=== PATIENT | female | born 1975 | race Caucasian/White ===

== ENCOUNTER 2021-11-01 19:26 | Emergency (ER) | payer OTHER, SELFPAY ==
[2021-11-01 19:30] VITALS: BP 174/99; PULSE 94; RESP 16; TEMP 37.3; O2SAT 96; BMI 26.5
--- NOTE | 2021-11-01 19:51 | ED.UPPEXIN ---
HPI - Extremity Injury (Upper) General Chief Complaint: Extremity Pain/Injury, Upper Stated Complaint: RIGHT ARM PAIN,CAN'T USE ARM Time Seen by Provider: 11/01/21 19:50 Source: patient and RN notes reviewed History of Present Illness HPI narrative: 46-year-old woman presenting partly upon urging of her with complaint of right arm area pain. Seemed to have begun having some discomfort in the right upper arm yesterday that settled a little bit and then returned again this morning with an increased sensation of tightness down into the right forearm like a rubber-band. Her fingers feel tight as well as her hand. In seemed to radiate up into more into her shoulder especially into her neck and some into her jaw a little less so into her back. Feels warm. No exacerbation with neck movement. She has not noted any swelling or redness. She notes a history of rotator cuff issue apparently physical therapy only in her 20s. She does not recall which side this was on. She endorses a lot of stress this week. Apparently daughter who struggles with drug addiction chest had 33-week-old twins. They did not know she was going to have twins. Furthermore already caring for another grandchild and a number of other children. With the stressors is also concerned that perhaps this represents cardiovascular problem. She is fairly convinced it is a shoulder issue. No fever. Treatment has been [facility] [place] balm. She also took a 1000 mg of Advil a couple hours ago. Thinks that it might be helping a little bit. No shortness of breath. No actual chest pain. No difficulty with swallowing. No cough or cold symptoms. No new trauma or excessive use of her arm that she can recall. Related Data Home Medications Medication Instructions Recorded Confirmed amlodipine 5 mg tablet 5 mg PO DAILY 11/01/21 11/01/21 cholecalciferol (vitamin D3) 11/01/21 levothyroxine 112 mcg tablet 112 mcg PO DAILY 11/01/21 11/01/21 (Synthroid) Allergies Allergy/AdvReac Type Severity Reaction Status Date / Time codeine Allergy Intermediate Hives Verified 11/01/21 19:41 Penicillins Allergy Intermediate Hives Verified 11/01/21 19:41 latex AdvReac Intermediate Blister Verified 11/01/21 19:41 shellfish derived AdvReac Hives Verified 11/01/21 19:41 Review of Systems Status of ROS: Reports: 10 or more systems reviewed and unremarkable except as noted in History and below [facility] Surgical History History of delivery Social History Smoking Status: Current every day smoker What tobacco products do you use: cigarettes Smoking packs per day: 1 Smoking cigarettes per day: 20.0 Years smoked: 4 Smoking pack-years: 4.00 Do you use any of these nicotine containing products: None Second hand tobacco smoke exposure: Yes How often do you have a drink containing alcohol: 2-3 times a week How many standard drinks containing alcohol do you have on a typical day: 1 or 2 How often do you have six or more drinks on one occasion: Never AUDIT-C Alcohol total score: 3 Non-prescribed substance use: denies use service: No Exam Narrative: Exam Narrative: Is pleasant. Does seem a little bit on edge but generally calm. I smell liniment. Skin is warm and dry without erythematous changes. A number of tattoos. Head looks to be atraumatic. Neck is supple and nontender. Does not reproduce arm symptoms to movement. are no pulsatile masses or other swellings appreciated in or around the neck. Back is nontender. Perhaps a little tense in the trapezial musculature on the right. Examination of the right shoulder is without swelling or erythema. She has good strength to resisted internal and external rotation. She does not have discrete area of pain to palpation of the shoulder or the upper arm. Is able to raise her arm up over her head. Internal rotation of the shoulder seems to-well she says it actually makes it feel little bit better. Regarding her arm-she is intact sensation and pulses distally. I do not appreciate any distal swelling though I understand her perception of fullness. Lungs are clear with equal expansion excursion. Heart initially little bit elevated rate settled down over time in the ER. Regular rhythm no murmurs rubs or gallops. Const: Vital Signs, click to edit/add: Vital Signs - 24 hr 11/01/21 19:30 11/01/21 21:01 Temperature 99.2 F Pulse Rate [Pulse Oximeter] 94 74 Respiratory Rate 16 18 Blood Pressure [Le ft Upper Arm] 174/99 H 136/85 Pulse Oximetry 96 97 Documenting provider has reviewed patient's vital signs: yes Course Course Hospital Course: I did order an x-ray of the shoulder. Three views were Reviewed by me looked to be unremarkable. Good spaces maintained. No acute abnormality. No spurring. Duration of symptoms and presentation overall seems atypical for cardiac disease. We did however do an EKG. This was reviewed by me showing a normal sinus rhythm at 72 without evidence of ischemic changes. I did offer further laboratory evaluation which was deferred. Arm sling was also ordered and placed Vital Signs Vital signs: Initial Vital Signs Temperature 99.2 F 11/01/21 19:30 Temperature Source Temporal Artery Scan 11/01/21 19:30 Pulse Rate 94 11/01/21 19:30 Respiratory Rate 16 11/01/21 19:30 Blood Pressure 174/99 H 11/01/21 19:30 Blood Pressure Mean 124 11/01/21 19:30 Blood Pressure Position Supine 11/01/21 19:30 Pulse Oximetry 96 11/01/21 19:30 Oxygen Delivery Method 11/01/21 19:30 Vital Signs Temperature 99.2 F 11/01/21 19:30 Pulse Rate 94 11/01/21 19:30 Respiratory Rate 16 11/01/21 19:30 Blood Pressure 174/99 H 11/01/21 19:30 Pulse Oximetry 96 11/01/21 19:30 Temperature 99.2 F 11/01/21 19:30 Pulse Rate 74 11/01/21 21:01 Respiratory Rate 18 11/01/21 21:01 Blood Pressure 136/85 11/01/21 21:01 Pulse Oximetry 97 11/01/21 21:01 MDM - Extremity Injury (Upper) MDM Narrative Medical decision making narrative: See above. Does appear to be some degree of inflammation present though admittedly difficult to reproduce. Does not seem to be referred as she reports no pain with movement of her neck. On re-evaluation reported that there was increased discomfort of her shoulder she attributed from moving it around during the exam. Medical Records Attestation: I reviewed the patient's medical records. Discharge Plan Discharge Clinical Impression: Arm pain Patient Disposition: Home, Self-Care Condition: Stable Additional Instructions: Wear this arm sling for comfort probably over this next week. I would ice your shoulder area with those screw top ice bags. Fill with ice and water. Ice a few times daily over the next few days. Follow-up in a week if not improving. Certainly return for uncontrolled pain, fever, chest pain/shortness of breath. Can take up to 800 mg of ibuprofen or up to 1000 mg of acetaminophen per dose. These can actually be combined as well. Alternative to the ibuprofen might be up to 500 mg of naproxen 2 times daily. Prednisone from [facility] --take 60 mg for the 1st dose. 40 mg on days 2 through 4 and then finish with 20 mg on day 5. I do hope you get some clarity and peace regarding the other things that are happening out there. Prescriptions: No Action amlodipine 5 mg tablet 5 mg PO DAILY 0RF Label Comments: TAKE 1 TABLET BY MOUTH DAILY levothyroxine [Synthroid] 112 mcg tablet 112 mcg PO DAILY 0RF Label Comments: TAKE 1 TABLET BY MOUTH EVERY DAY cholecalciferol (vitamin D3) 0RF Follow Up/Referrals: Enrique Collins MD [Primary Care Provider] - Stand Alone Forms: [employer] Info Instructions
--- NOTE | 2021-11-01 20:17 | CRLHL7_ITS ---
For Patients: As a result of the Cures Act, medical imaging exams and procedure reports are released immediately into your electronic medical record. You may view this report before your referring provider. If you have questions, please contact your health care provider. INDICATION: Severe shoulder pain, atraumatic, Severe shoulder area pain TECHNIQUE: Shoulder radiograph 3 views right COMPARISON: None FINDINGS: Bone: No acute fractures or aggressive bone lesions are identified. Joint: The glenohumeral joint is unremarkable. The acromioclavicular joint is unremarkable. Soft tissue: Unremarkable. The visualized hemithorax is unremarkable in appearance. No radiopaque foreign bodies are seen. IMPRESSION: 1. No acute osseous injuries or abnormalities are noted. Dictated by: Ash Marcos MD @ 11/01/2021 20:52:00 (Electronically Signed)
[2021-11-01 21:01] VITALS: BP 136/85; PULSE 74; RESP 18; O2SAT 97
== END 2021-11-01 21:35 | disposition home or self-care (01) ==
PROVIDERS: Emergency Provider Family Medicine; PCP Internal Medicine
DX: M79.601 Pain in right arm (principal)
CPT/HCPCS: 73030; 93005; 99283; 99284

== ENCOUNTER 2022-08-11 09:05 | Outpatient (CLI) | payer OTHER, BC, SELFPAY | END 2022-08-11 09:06 | disposition home or self-care (01) | LOC: NFLDREF 08-12 14:28 | PROVIDERS: PCP Internal Medicine; Referring Provider Internal Medicine; Visit Provider Internal Medicine | DX: E03.9 Hypothyroidism, unspecified (principal); I10 Essential (primary) hypertension; Z13.6 Encounter for screening for cardiovascular disorders | CPT/HCPCS: 80053; 80061; 84439; 84443 ==

== ENCOUNTER 2023-02-22 12:57 | Outpatient (CLI) | payer BC, SELFPAY ==
--- NOTE | 2023-02-22 13:00 | CRLHL7_ITS ---
For Patients: As a result of the Century Cures Act, medical imaging exams and procedure reports are released immediately into your electronic medical record. You may view this report before your referring provider. If you have questions, please contact your health care provider. BILATERAL SCREENING MAMMOGRAM WITH COMPUTER-AIDED DETECTION AND TOMOSYNTHESIS TECHNIQUE: CC and MLO views were obtained. These mammographic images have been obtained using full-field digital technique. These mammographic images were interpreted with the benefit of computer-aided detection. Breast Tomosynthesis was used in this interpretation. COMPARISON FILM: 09/02/21, 12/04/17, 04/14/16. FINDINGS: The breasts are extremely dense, which lowers the sensitivity of mammography IMPRESSION: There is no radiographic evidence for malignancy. ASSESSMENT: BI-RADS Category 1: Negative RECOMMENDATION: Routine screening mammogram in 1 year. A lay language report of this examination will be provided to the patient. Jorje Johnson M.D. Diagnostic Radiologist [email or web address] Transcribed: 1:06 p.aj mcintosh/Dictated by: Jorje Johnson MD @ 02/23/2023 12:41:00 PM (Electronically Signed)
== END 2023-02-22 12:58 | disposition home or self-care (01) ==
PROVIDERS: PCP Internal Medicine; Visit Provider Internal Medicine
DX: Z12.31 Encounter for screening mammogram for malignant neoplasm of breast (principal); R92.2 Inconclusive mammogram
CPT/HCPCS: 77063; 77067

== ENCOUNTER 2023-06-09 14:33 | Outpatient (CLI) | payer OTHER, SELFPAY ==
--- OUTSIDE RECORDS SUMMARY | 2023-06-12 05:35 | XMS_ITS | Clinical Summary ---
Author Name Unknown Organization [employer] [facility] Address [place], [place] [address] Care Team Providers Care Supervisor Boat Outfitting Name Role Phone Enrique Collins MD Primary Care Provider [phone] Allergies Active Allergy Reactions Criticality Noted Date Comments Latex Contact Dermatitis 11/24/2015 Penicillins Itching 08/01/2011 Shellfish Containing Products Anaphylaxis High 11/23 Medications Medication Sig Dispensed Refills Start Date End Date Status SYNTHROID 112 mcg tablet Take 112 mcg by mouth once daily. 1 01/20/2018 Active nicotine (NICORETTE) 4 mg gumIndications:Encoun ter for smoking cessation counseling Take 1 Each by mouth every hour while awake as needed for Nicotine Craving. 1 box 6 02/28/2018 Active lisinopril (PRINIVIL; ZESTRIL) 10 mg tabletIndications:Ess ential hypertension Take 1 tablet by mouth once daily. 30 tablet 0 06/30/2018 Active nicotine (NICORETTE) 2 mg gumIndications:Tobacc o use disorder Take 1 Each by mouth every hour while awake as needed for Nicotine Craving. 80 gum 2 06/30/2018 Active Active Problems Problem Noted Date Diagnosed Date Hypothyroidism Immunizations Name Administration Dates Next Due Tdap 12/26/2007 Family History Medical History Relation Name Comments Diabetes Father Hypertension Father Stroke Father Cancer-breast Maternal Aunt Cancer-breast Mother dx age 46 yrs old Cancer-breast Other Mat 1st cousin -34-5 Cancer No Family History Cancer-colon No Family History Cancer-ovarian No Family History Relation Name Status Comments Father Maternal Aunt Mother Other Social History Tobacco Use Types Packs/Day Years Used Date Smoking Tobacco: Every Day Cigarettes Last attempted to quit: 05/31/2007 Smokeless Tobacco: Never Tobacco Cessation:Counseling Given: Yes Comments:quit 02/22/18 Alcohol Use Standard Drinks/Week Comments Yes 0 (1 standard drink = 0.6 oz pur e alcohol) ocassionally PHQ-2 Answer Date Recorded PHQ-2 Score 0 06/30/2018 Sex and Gender Information Value Date Recorded Sex Assigned at Not on file Gender Identity Not on file Sexual Orientation Not on file Obstetrics History Last Filed Vital Signs Vital Sign Reading Time Taken Comments Blood Pressure 160/96 06/30/2018 10:20 AM CHIEF CRNA Pulse 107 06/30/2018 9:38 AM CHIEF CRNA Temperature 37 ??C (98.6 ??F) 06/30/2018 9:38 AM CHIEF CRNA Respiratory Rate 20 07/21/2011 4:14 PM CDT Oxygen Saturation 98% 06/30/2018 9:38 AM CHIEF CRNA Inhaled Oxygen Concentration - - Weight 67.1 kg (148 lb) 06/30/2018 9:38 AM CHIEF CRNA Height 154.9 cm (5' 0.98) 02/28/2018 8:30 AM CD T Body Mass Index 27.98 02/28/2018 8:30 AM CDT Plan of Treatment Health Maintenance Due Date Last Done Comments COVID-19 vaccine series (#1) 1974 HIV for age 15-65 1989 Hepatitis C screening for age 18-79 02/12/1992 Tetanus booster 12/25/2017 12/26/2007 Colonoscopy through age 75 2019 Lipids for age 45-75 2019 Mammogram for age 45-75 2019 12/05/19 18, 04/14/2016, 09/24/2014, Additional history exists BMI (ht and wt on same day) for age 18+ 02/28/2019 02/28/2018, 01/13/2018, 03/25/2017, Additional history exists Depression screening for age 12+ 03/01/2019 03/01/2018, 02/28/2018 Pap test for age 21-65 05/16/2021 9, 05/16/2018, 02/22/2016, Additional history exists Influenza for age 9-49 12/30/2022 Tdap Completed 12/26/2007 Pneumococcal series for age 6-64 Aged Out No longer eligible based on patient's age to complete this topic Care Teams Supervisor Boat Outfitting Relationship Specialty Start Date End Date Enrique Collins MD [address] [place] [address] PCP - General Internal Medicine 12/01/17
== END 2023-06-09 14:34 | disposition home or self-care (01) ==
LOC: NFLDREF 06-12 05:34
PROVIDERS: PCP Internal Medicine; Referring Provider Internal Medicine; Visit Provider Internal Medicine
DX: E03.9 Hypothyroidism, unspecified (principal)
CPT/HCPCS: 84439; 84443

== ENCOUNTER 2023-08-29 13:35 | Outpatient (CLI) | payer OTHER, SELFPAY ==
--- OUTSIDE RECORDS SUMMARY | 2023-09-01 11:19 | XMS_ITS | Clinical Summary ---
Author Name Unknown Organization [facility] [facility] Address [place], [place] [address] Care Team Providers Care Acid Conditioning Worker Name Role Phone Enrique Collins MD Primary Care Provider Allergies Active Allergy Reactions Criticality Noted Date [...] tablet by mouth once daily. 30 tablet 06/30/2018 Active nicotine (NICORETTE) 2 mg gumIndications:Tobacc [...] Comments Blood Pressure 160/96 06/30/2018 10:20 AM MANAGER UNDERWRITING Pulse 107 06/30/2018 9:38 AM MANAGER UNDERWRITING Temperature 37 ??C (98.6 ??F) 06/30/2018 9:38 AM MANAGER UNDERWRITING Respiratory Rate 20 07/21/2011 4:14 PM CDT Oxygen Saturation 98% 06/30/2018 9:38 AM MANAGER UNDERWRITING Inhaled Oxygen Concentration - - Weight 67.1 kg (148 lb) 06/30/2018 9:38 AM MANAGER UNDERWRITING Height 154.9 cm (5' 0.98) 02/28/2018 8:30 AM CD T Body Mass Index 27.98 02/28/2018 8:30 AM CDT Plan of Treatment Health Maintenance Due Date Last Done Comments HIV for age 15-65 1989 Hepatitis C [...] 02/28/2018 Pap test for age 21-65 05/16/2021 , 05/16/2018, 02/22/2016, Additional history exists COVID-19 vaccine series ( - 2022- season) 2022 Influenza for age 9-49 12/31/2023 Tdap Completed 12/26/2007 Pneumococcal series for age 6-64 Aged Out No longer eligible based on patient's age to complete this topic Procedures Procedure Name Priority Date/Time Associated Diagnosis Comments MEAL COOKER THIN PREP PAP SCREEN IMAGED Routine 05/16/2018 6:09 PM MANAGER UNDERWRITING XR MAMMO MASON BILAT SCREEN Routine 12/04/2017 9:26 AM CDT Visit for screening mammogram from Last 3 Months or Most Recently Relevant to Health Maintenance Results * MEAL COOKER THIN PREP PAP SCREEN IMAGED (05/16/2018 6:09 PM MANAGER UNDERWRITING) Case Report Gynecologic Cytology Report ? Case: [id number] ? Authorizing Provider: ??Martha Pierre NP ? Collected: ? 05/16/2018 1809 ? First Screen: ?Bean Jaeger ?Received: ?05/17/2018 1809 ? Specimen: ?MEAL COOKER ThinPrep Vial Screening, Cervical/Vaginal ? 05/25/2018 8:28 AM [facility] [employer] LABORATORY-C ENTRAL LABORATORY INTERPRETATION/ RESULT NEGATIVE FOR INTRAEPITHELIAL LESION OR MALIGNANCY (NIL) (none) 05/25/2018 8:28 AM [facility] [employer])-C ENTRAL LABORATORY IMEN ADEQUACY Satisfactory for evaluation Endocervical component present 05/25/2018 8:28 AM [facility] [employer] LABORATORY-C ENTRAL LABORATORY HPV REQUEST HPV and PAP 05/25/2018 8:28 AM [facility] [employer] LABORATORY-C ENTRAL LABORATORY Date of LMP 05/03/2018 05/25/2018 8:28 AM [facility] [employer]C ENTRAL LABORATORY Last Pap Date 02/22/2016 05/25/2018 8:28 AM [facility] Last Pap Result NIL 8:28 AM [facility] Automated Review Successful 05/25/2018 8:28 AM [facility] Comment:Specimen processed s uccessfully by automated merchandising intern device, [employer] Imaging System, [employer] ANCILLARY TESTING MEAL COOKER HPV Ordered, Please see separate report 05/25/2018 8:28 AM [facility] Note The pap test is a screening technique, not a diagnostic procedure. ??It is used primarily to screen for squamous cancers and precursor lesions. ??Published studies have shown that it is subject to both false negative and false positive results. ??The pap test should not be used as the sole means to diagnose or exclude pre-malignant and malignant lesions. Cytology is screened and interpreted at [facility] - [address], [place] [address] and [facility] - [address]; [place] [address] [address] [facility] - [address]; [place] [address] [address] [facility] [address]; [place] [address] 05/25/2018 8:28 AM [facility] Other (Cervical/Vagina l) 05/16/2018 6:09 PM MANAGER UNDERWRITING 05/17/2018 6:09 PM MANAGER UNDERWRITING Martha Pierre NP PATHOLOGY/CYTOLOGY [facility] [address] [place] [address], [place] * XR MAMMO MASON SCREEN BILAT (12/04/2017 9:26 AM CDT) Anatomical Region Laterality Modality BREASTS, Breast Left, Breast Right Bilateral Mammography Impressions 12/04/2017 9:49 AM CDT ??There is no radiographic evidence for malignancy. ??Recommend annual mammograms. A lay language report of this examination will be provided to the patient. MAMMOGRAM ASSESSMENT: ??ACR 1 Negative Narrative 12/04/2017 9:49 AM CDT XR MAMMO MASON BILAT SCREEN [[id number]] CLINICAL HISTORY: ??This is an asymptomatic 42 y.o. patient. INDICATION FOR EXAM: Mammogram Screening. TECHNIQUE: CC & MLO views were obtained. ??This digital study was evaluated with the assistance of Computer-Aided Detection. Breast Tomosynthesis was used in interpretation. COMPARISON FILM: Yes 04/14/16 [facility] 09/24/14 [facility] FINDINGS: ??Mammographically, the breast tissue is heterogeneously dense, which could obscure detection of small masses. There are no dominant masses, suspicious micro calcifications or areas of architectural distortion. Babita Lind MD MAMMO from Last 3 Months or Most Recently Relevant to Health Maintenance Care Teams Acid Conditioning Worker Relationship Specialty Start Date End Date Enrique Collins MD [address] [place] [address] PCP - General Internal Medicine 12/01/17
== END 2023-08-29 13:36 | disposition home or self-care (01) ==
LOC: NFLDREF 09-01 11:17
PROVIDERS: PCP Internal Medicine; Referring Provider Internal Medicine; Visit Provider Internal Medicine
DX: I10 Essential (primary) hypertension (principal); R63.5 Abnormal weight gain
CPT/HCPCS: 80053; 84439; 84443

== ENCOUNTER 2023-12-27 13:59 | Outpatient (CLI) | payer OTHER, SELFPAY ==
--- OUTSIDE RECORDS SUMMARY | 2023-12-28 10:51 | XMS_ITS | Clinical Summary ---
Author Organization [employer] [facility] Address [place], [place] [address] Care Team Providers Care Film Sorter Name Role Phone Enrique Collins MD Primary Care Provider [phone] Allergies Active Allergy Reactions Criticality Noted Date [...] Comments Blood Pressure 160/96 06/30/2018 10:20 AM DITCHER OPERATOR Pulse 107 06/30/2018 9:38 AM DITCHER OPERATOR Temperature 37 ??C (98.6 ??F) 06/30/2018 9:38 AM DITCHER OPERATOR Respiratory Rate 20 07/21/2011 4:14 PM CDT Oxygen Saturation 98% 06/30/2018 9:38 AM DITCHER OPERATOR Inhaled Oxygen Concentration - - Weight 67.1 kg (148 lb) 06/30/2018 9:38 AM DITCHER OPERATOR Height 154.9 cm (5' 0.98) 02/28/2018 8:30 [...] 02/22/2016, Additional history exists COVID-19 vaccine series (2022- season) 2022 Influenza for age 9-49 12/31/2023 Tdap Completed 12/26/2007 Pneumococcal series for age 6-64 Aged Out No longer eligible based on patient's age to complete this topic Procedures Procedure Name Priority Date/Time Associated Diagnosis Comments PHOTOENGRAVING PROOFER THIN PREP PAP SCREEN IMAGED Routine 05/16/2018 6:09 PM DITCHER OPERATOR XR MAMMO MASON BILAT SCREEN Routine 12/04/2017 9:26 AM CDT Visit for screening mammogram from Last 3 Months or Most Recently Relevant to Health Maintenance Results * PHOTOENGRAVING PROOFER THIN PREP PAP SCREEN IMAGED (05/16/2018 6:09 PM DITCHER OPERATOR) Case Report Gynecologic Cytology Report ? Case: [id number] ? Authorizing Provider: ??Martha Pierre, NERI ? Collected: ? 05/16/2018 1809 ? First Screen: ?Bean Jaeger ?Received: ?05/17/2018 1809 ? Specimen: ?PHOTOENGRAVING PROOFER ThinPrep Vial Screening, Cervical/Vaginal ? 05/25/2018 8:28 AM [facility] [employer] LABORATORY-C ENTRAL LABORATORY INTERPRETATION/ RESULT NEGATIVE FOR INTRAEPITHELIAL LESION OR MALIGNANCY (NIL) (none) 05/25/2018 8:28 AM [facility] [employer] LABORATORY-C ENTRAL LABORATORY IMEN ADEQUACY Satisfactory for evaluation Endocervical component present 05/25/2018 8:28 AM [facility] [employer] LABORATORY-C ENTRAL LABORATORY HPV REQUEST HPV and PAP 05/25/2018 8:28 AM DITCHER OPERATOR [employer] LABORATORY-C ENTRAL LABORATORY Date of LMP 05/03/2018 05/25/2018 8:28 AM [facility] [employer] ENTRAL LABORATORY Last Pap Date 02/22/2016 05/25/2018 8:28 AM [facility] Last Pap Result NIL 8:28 AM [facility] Automated Review Successful 05/25/2018 8:28 AM [facility] Comment:Specimen processed s uccessfully by automated analog design engineer device, [employer] Imaging System, [employer] ANCILLARY TESTING PHOTOENGRAVING PROOFER HPV Ordered, Please see separate report 05/25/2018 8:28 AM [facility] Note The pap test is a screening [...] lesions. Cytology is screened and interpreted at [facility] - [address], [place] [address] and [facility] - [address]; [place] [address] and [facility] - [address]; [place] [address] and [facility] [address]; [place] [address] 05/25/2018 8:28 AM [facility] Other (Cervical/Vagina l) 05/16/2018 6:09 PM DITCHER OPERATOR 05/17/2018 6:09 PM DITCHER OPERATOR Martha Pierre NP PATHOLOGY/CYTOLOGY [facility] [address] [place] [address], [place] * XR MAMMO MASON SCREEN BILAT [...] AM CDT XR MAMMO MASON BILAT SCREEN [[id number]] CLINICAL HISTORY: ??This is an asymptomatic 42 y.o. patient. INDICATION FOR EXAM: Mammogram Screening. TECHNIQUE: CC & MLO views were obtained. ??This digital study was evaluated with the assistance of Computer-Aided Detection. Breast Tomosynthesis was used in interpretation. COMPARISON FILM: Yes 04/14/16 [facility] 09/24/14 [facility] FINDINGS: ??Mammographically, the breast tissue is heterogeneously dense, which could obscure detection of small masses. There are no dominant masses, suspicious micro calcifications or areas of architectural distortion. Babita Lind MD MAMMO from Last 3 Months or Most Recently Relevant to Health Maintenance Care Teams Film Sorter Relationship Specialty Start Date End Date Enrique Collins MD [address] [place] [address] PCP - General Internal Medicine 12/01/17
== END 2023-12-27 14:00 | disposition home or self-care (01) ==
LOC: NFLDREF 12-28 10:49
PROVIDERS: PCP Internal Medicine; Referring Provider Internal Medicine; Visit Provider Internal Medicine
DX: I10 Essential (primary) hypertension (principal); E03.9 Hypothyroidism, unspecified; Z13.6 Encounter for screening for cardiovascular disorders; Z13.9 Encounter for screening, unspecified; Z72.0 Tobacco use
CPT/HCPCS: 80053; 80061; 83001; 83002; 84443

== ENCOUNTER 2024-08-22 11:20 | Outpatient (CLI) | payer OTHER, SELFPAY ==
[2024-08-24 15:16] LABS: HPV Source Cervix; HPV, High Risk by TMA Not Detected
[2024-09-03 14:03] LABS: Pap Test Reviewed by Path Done
== END 2024-08-22 11:21 | disposition home or self-care (01) ==
PROVIDERS: PCP Internal Medicine; Visit Provider Obstetrics & Gynecology
DX: Z12.4 Encounter for screening for malignant neoplasm of cervix (principal); Z11.51 Encounter for screening for human papillomavirus (HPV)
CPT/HCPCS: 87624; 87625; 88141; 88142

== ENCOUNTER 2024-10-07 09:10 | Outpatient (CLI) | payer OTHER, SELFPAY | END 2024-10-07 09:11 | disposition home or self-care (01) | LOC: NFLDREF 16:13 | PROVIDERS: PCP Internal Medicine; Referring Provider Internal Medicine; Visit Provider Internal Medicine | DX: E03.9 Hypothyroidism, unspecified (principal) | CPT/HCPCS: 84439; 84443 ==

== ENCOUNTER 2024-12-18 10:45 | Outpatient (CLI) | payer OTHER, SELFPAY | END 2024-12-18 10:46 | disposition home or self-care (01) | PROVIDERS: PCP Internal Medicine; Visit Provider Internal Medicine | DX: I10 Essential (primary) hypertension (principal); E03.9 Hypothyroidism, unspecified | CPT/HCPCS: 82533; 84439; 84443 ==

== ENCOUNTER 2025-02-25 13:32 | Outpatient (CLI) | payer OTHER, SELFPAY | END 2025-02-25 13:33 | disposition home or self-care (01) | LOC: NFLDREF 02-27 11:29 | PROVIDERS: PCP Internal Medicine; Referring Provider Internal Medicine; Visit Provider Internal Medicine | DX: E03.9 Hypothyroidism, unspecified (principal); I10 Essential (primary) hypertension | CPT/HCPCS: 82533; 83520; 84439; 84443; 84480; 86376 ==